=== PATIENT | male | born 1995 | race Caucasian/White ===

== ENCOUNTER → 2017-05-16 | Outpatient (CLI) | payer OTHER ==
[~2017-05-16] MED LIST: ASPIRIN81 M1 PO; MOTRIN400 MG PO; MOTRIN800 MG PO; MULTIVITAMIN1 CTB PO; NAPROSYN500 MG PO
== END | disposition home or self-care (01) ==
LOC: CARD 07:30
DX: Q21.2 Atrioventricular septal defect (principal); I08.0 Rheumatic disorders of both mitral and aortic valves; I37.1 Nonrheumatic pulmonary valve insufficiency; Z98.890 Other specified postprocedural states

== ENCOUNTER 2023-08-29 19:48 | Emergency (ER) | payer OTHER ==
[~2023-08-29] VITALS: Ht 182.8 cm; Wt 86.2 kg
[2023-08-29 20:45] LABS: BASO # 0.1 10*3/uL (0.0-0.1); BASO % 0.5 % (0.0-1.0); EOS # 0.1 10*3/uL (0.0-0.4); EOS % 1.1 % (1.0-4.0); HEMATOCRIT 49.6 % (42.0-52.0); LYMPH # 1.8 10*3/uL (1.3-4.4); LYMPH % 16.7 % (27.0-41.0); MEAN CELL VOLUME 88.9 fl (80.0-94.0); MEAN CORPUSCULAR HGB CONC 32.7 g/dl (33.0-37.0); MEAN PLATELET VOLUME 11.9 fl (9.6-12.3); MONO # 0.9 10*3/uL (0.1-1.0); MONO % 8.3 % (3.0-9.0); NEUT # 7.9 10*3/uL (2.3-7.9); NEUT % 73.2 % (47.0-73.0); PLATELET COUNT AUTOMATED 196 10*3/uL (130-400); RED BLOOD COUNT 5.58 10*6/uL (4.50-5.90); RED CELL DISTRI WIDTH 12.8 % (0-14.5); WHITE BLOOD COUNT 10.8 10*3/uL (4.8-10.8)
[2023-08-29 20:56] LABS: ACT PARTIAL THROMBO TIME 31.6 SECONDS (20.0-32.1); INTERNATIONAL NORM RATIO 1.1 (2.0-3.5)
[2023-08-29 21:06] LABS: LIPASE 28 U/L (12-53)
[2023-08-29 21:08] LABS: ETHYL ALCOHOL < 3.0 mg/dl (<3)
[2023-08-29 21:09] LABS: ALKALINE PHOSPHATASE 75 U/L (46-116); BUN 11 mg/dl (9-23); CHLORIDE 104 mmol/L (98-107); POTASSIUM 4.5 mmol/L (3.4-5.1); SGPT/ALT 42 U/L (10-49); TOTAL PROTEIN 7.6 gm/dL (6.0-8.0)
[2023-08-29 21:30] LABS: BILIRUBIN Negative (Negative); BLOOD Negative (Negative); CLARITY Clear (Clear); COLOR Yellow (Yellow); GLUCOSE Negative (Negative); KETONE Negative (Negative); LEUKO ESTERASE Negative (Negative); NITRITE Negative (Negative); SPECIFIC GRAVITY <= 1.005 (1.001-1.030); UROBILINOGEN 0.2 E.U./dl (0.0-1.0)
[2023-08-29 21:37] LABS: URINE AMPHETAMINES Negative (1000ng/ml); URINE BARBITURATES Negative (200ng/ml); URINE BENZODIAZEPINES Negative (200ng/ml); URINE CANNABINOIDS (THC) Negative (50ng/ml); URINE COCAINE Negative (300ng/ml); URINE METHADONE Negative (300ng/ml); URINE OPIATES Negative (300ng/ml); URINE PHENCYCLIDINE Negative (25ng/ml)
[2023-08-29 21:41] LABS: BACTERIA TRACE; RBC 0-2 rbc/hpf (0-2); WBC 0-2 wbc/hpf (0-5)
[2023-08-29 21:48] VITALS: BP 136/91
[2023-08-29] MEDS ORDERED: PEPCID20 MG PO (23:01)
== END 2023-08-29 23:12 | disposition home or self-care (01) ==
LOC: ED 19:48
PROVIDERS: Internal Medicine
DX: K21.9 Gastro-esophageal reflux disease without esophagitis (principal); Z98.890 Other specified postprocedural states; Z79.899 Other long term (current) drug therapy